=== PATIENT | male | born 1995 | race Caucasian/White ===

== ENCOUNTER 2022-04-09 18:06 | Emergency (ER) | payer OTHER, SELFPAY ==
[2022-04-09 18:51] VITALS: BP 110/70; PULSE 104; RESP 14; TEMP 37.5; O2SAT 95; BMI 19.3
--- NOTE | 2022-04-09 19:02 | PC.NURSE ---
pt feeling much better in triage, pain improved, fever down, wishes to go home and monitor symptoms, will return as needed, pt signed refusal of services
== END 2022-04-09 19:48 | disposition left against medical advice (07) ==
LOC: ED 19:50
DX: Z53.29 Procedure and treatment not carried out because of patient's decision for other reasons (principal)